=== PATIENT | male | born 1975 | race Caucasian/White ===

== ENCOUNTER 2024-11-30 10:28 | Inpatient (IN) | payer MEDICAID ==
[~2024-11-30] VITALS: Ht 172.7 cm; Wt 58.2 kg
[2024-11-30] MEDS ORDERED: PANT40TA54 PO (10:49)
[2024-11-30] MEDS ORDERED: PRED10TA (10:49)
[2024-11-30] MEDS ORDERED: FERR236T3 PO (10:50)
[2024-11-30] MEDS ORDERED: potassium Cl 20 mEq SR tablet PO PRN ×2 (12:30)
[2024-11-30] MEDS ORDERED: magnesium sulf-water 2g/50mL 50 ML IV PRN (12:30)
[2024-11-30] MEDS ORDERED: potassium Cl 40MEQ/1/2NS 520ml 520 ML IV PRN (12:30)
[2024-11-30] MEDS ORDERED: mag hydrox/Alum hydrox/simeth 30ml oral suspension PO PRN (12:30)
[2024-11-30] MEDS ORDERED: magnesium sulf-water 4G/100mL 100 ML IV PRN (12:30)
--- NOTE | 2024-11-30 12:43 | Physician Documentation ---
History of Present Illness ~ Chief Complaint: Rectal Bleeding Stated Complaint: ABD PAIN Time Seen by MD: 10:31 Mode of Arrival: EMS HPI 49 year old male with recent hospitalization at [place] in [place], [place] with diagnosis of ulcerative colitis. On steroid taper, presented to [facility] with worsening symptoms of abdominal pain and lower GI bleeding. IVF and antibiotics there for concern for possible sepsis given soft blood pressures, consult with GI fiscal economist in [place] and admission was decided, patient sent to us as transfer for higher level of GI care. On arrival, patient was stable and comfortable. Medication Reconciliation Allergies: Coded Allergies: infliximab (Verified Allergy, Severe, 11/30/24) hives and blisters Uncoded Allergies: NSAIDS (Allergy, Mild, 11/30/24) "due to stomach issues" MESALINE (Allergy, Unknown, 11/30/24) Scheduled Ferrous Gluconate (Iron), 1 TAB PO DAILY, (Reported) Pantoprazole Sodium (Pantoprazole Sodium), 1 TAB PO DAILY, (Reported) Miscellaneous Medications Prednisone (Prednisone), (Reported) Review of Systems All Other Systems at this time: Reviewed and Negative Physical Exam Vital Signs: RN Vital Signs have been reviewed: Yes, Temperature: 97.8, Source: Oral, Heart Rate: 73, Respiratory Rate: 16, BP: 91/62, Pulse Oximetry: 99, Weight: 58.180 Oxygen Flow Rate: 0 Physical Exam HEENT: PERRL, moist oral mucosa, EOMI Pulmonary: No respiratory distress Cardiac: RRR, no murmur, rub or gallop GI: nondistended, soft, nontender, no guarding, no rebound MSK: no deformity Skin: w/d/i, no rash Neuro: alert, nonfocal Psych: normal affect Progress Results/Orders Results/Orders Orders - SKY HECTOR MD Page Hospitalist (11/30/24 10:37) Vital Signs 11/30/24 11/30/24 10:36 12:16 Temp 97.8 Pulse 70 73 Resp 16 16 B/P (MAP) 108/65 91/62 (72) Pulse Ox 99 99 O2 Flow Rate 0 0 Laboratory Tests Test 11/30/24 10:43 White Blood Count 10.1 Red Blood Count 3.32 L Hemoglobin 9.3 L Hematocrit 28.8 L Mean Corpuscular Volume 86.8 Mean Corpuscular Hemoglobin 28.0 Mean Corpuscular Hemoglobin Concent 32.2 L Red Cell Distribution Width 19.6 H Platelet Count 483 H Mean Platelet Volume 7.1 L Neutrophils (%) (Auto) 87.9 H Lymphocytes (%) (Auto) 5.0 L Monocytes (%) (Auto) 6.9 Eosinophils (%) (Auto) 0 Basophils (%) (Auto) 0.2 Neutrophils # (Auto) 8.9 H Lymphocytes # (Auto) 0.5 L Monocytes # (Auto) 0.7 Eosinophils # (Auto) 0.0 Basophils # (Auto) 0.0 CBC Comment Sodium Level 140 Potassium Level 3.8 Chloride Level 105 Carbon Dioxide Level 25.5 Anion Gap 10 Blood Urea Nitrogen 8 Creatinine 0.85 Estimated GFR/1.73 m2 > 90 BUN/Creatinine Ratio 9.4 L Glucose Level 181 H Lactic Acid Level 3.8 H Calcium Level 8.3 L Total Bilirubin 0.3 Aspartate Amino Transf (AST/SGOT) 25 Alanine Aminotransferase (ALT/SGPT) 41 Alkaline Phosphatase 73 Total Protein 5.9 L Albumin 1.7 L Globulin 4.2 Albumin/Globulin Ratio 0.4 L Chemistry Comments Medical Decision Making Findings 49 year old male with apparent colitis and flareup of UC, sent from [facility] transferred to hospitalist for further GI workup. Additional Comments Ddx = IBD flareup, AVM, bleeding hemorrhoids, diverticulitis, intraabdominal abscess Departure Disposition: 09 ADMITTED INPATIENT Admitted to Inpatient Unit: to hospitalist Admission Level of Care: Med/Surg Impression: Primary Impression: Ulcerative colitis Condition: Stable Referrals: NO PRIMARY CARE PROVIDER (PCP) Education Educated: Patient Educated regarding: diagnosis, treatment, prognosis, need for follow up Signature Scribe Signature: . Attestation: . SKY HECTOR MD Nov 30, 2024 12:43
[2024-11-30 12:53] LABS: BASOPHILS % (AUTO) 0.2 % (0-1); EOSINOPHILS % (AUTO) 0 % (0-6); HEMATOCRIT 28.8 % (42.0-52.0); HEMOGLOBIN 9.3 g/dl (14.0-17.9); LYMPHOCYTES # (AUTO) 0.5 X10'3 (1.1-4.8); MEAN CORPUSCULAR HGB CONC 32.2 g/dL (33.0-36.5); MEAN CORPUSCULAR VOLUME 86.8 FL (78-98); MEAN PLATELET VOLUME 7.1 FL (7.4-10.4); MONOCYTES # (AUTO) 0.7 X10'3 (0-0.9); MONOCYTES % (AUTO) 6.9 % (2-12); NEUTROPHILS # (AUTO) 8.9 X10'3 (1.8-7.7); NEUTROPHILS % (AUTO) 87.9 % (42-75); PLATELET COUNT 483 X10'3 (140-440); RED BLOOD COUNT 3.32 X10'6 (4.70-6.10); RED CELL DISTRIBUTION WIDTH 19.6 % (11.5-14.5); WHITE BLOOD COUNT 10.1 X10'3 (4.5-11.0)
[2024-11-30 12:59] LABS: ALANINE AMINOTRANSFERASE 41 U/L (12-78); ALBUMIN 1.7 G/DL (3.4-5.0); ALBUMIN/GLOBULIN RATIO 0.4 (1.1-1.5); ALKALINE PHOSPHATASE 73 IU/L (46-116); ANION GAP 10 (8-16); ASPARTATE AMINO TRANSFERASE 25 U/L (10-37); BILIRUBIN,TOTAL 0.3 MG/DL (0.1-1.0); BLOOD UREA NITROGEN 8 MG/DL (7-18); BUN/CREATININE RATIO 9.4 (10.0-20.0); CALCIUM 8.3 MG/DL (8.5-10.1); CHLORIDE 105 MMOL/L (99-107); CREATININE 0.85 MG/DL (0.60-1.10); GLUCOSE 181 MG/DL (70-104); POTASSIUM 3.8 MMOL/L (3.5-5.1); SODIUM 140 MMOL/L (135-145); TOTAL CARBON DIOXIDE 25.5 MMOL/L (24-32); TOTAL PROTEIN 5.9 G/DL (6.4-8.2); eCRCL 86 ML/MIN; eGFR > 90 ML/MIN
[2024-11-30] MEDS: methylPREDNISolone sod succ 125mg/2ml vial IV SCH (13:24)
[2024-11-30] MEDS: normal saline 1000ml 1,000 ML IV SCH (13:24)
[2024-11-30] MEDS: VANCOMYCIN 500MG/WATER FOR INJ (PEG) PREMIX 100 ML IV STA (13:24)
[2024-11-30 14:15] VITALS: BP 96/63; PULSE 68; RESP 15; TEMP 98.6; O2SAT 99
[2024-11-30 15:02] VITALS: RESP 15; O2SAT 99
[2024-11-30] MEDS: piperacillin/tazo 4.5gm/100ml 100 ML IV SCH (16:38)
[2024-11-30 18:00] VITALS: BP 94/61; PULSE 65; RESP 21; TEMP 97; O2SAT 97
--- NOTE | 2024-11-30 19:13 | HISTORY AND PHYSICAL ---
History & Physical Providers to ~ History of Present Illness Reason for Admit\\Complaint: Ulcerative colitis flare-up History of Present Illness This is a 49-year-old male who is transferred from [facility] ED for a ulcerative colitis flare-up the patient has been hospitalized an and low and discharged on 11/22 with a tapering dose of prednisone 60 mg x 1 day then 40 mg x 3 days and then 20 mg x 3 days and then 10 mg when the patient decrease his prednisone to 20 mg he has started having bloody bowel movements and went to the ED for which the patient has has mild anemia hemoglobin 9.3 which was 9.8 at [facility]. The ER physician Dr. Jones spoke to on-call hourly sign language interpreter Annabelle Mcdaniel recommended upon discharge to stay on 60 mg of prednisone daily the patient has a follow up appointment with Gastroenterology on the . The patient also had a positive blood culture Gram-positive cocci was started on Zosyn and vancomycin which will be continued. Patient informs me that he has had three episodes of ulcerative colitis the initial one was in 2013 and lasted for a couple of weeks and spontaneously resolved he has a 2nd flare-up in 2019 the patient has has had symptoms on this flare-up since the beginning of the year. The patient does become sweaty when he develops a flare-up and he is sweating in the afternoon and in the evening. The patient is on IV Solu-Medrol currently Allergies: Coded Allergies: infliximab (Verified Allergy, Severe, 11/30/24) hives and blisters Uncoded Allergies: NSAIDS (Allergy, Mild, 11/30/24) "due to stomach issues" MESALINE (Allergy, Unknown, 11/30/24) Home Medications Home Medications Active Reported Iron (Ferrous Gluconate) 236 Mg (27 Mg Iron) Tablet 1 Tab PO DAILY 30 Days Pantoprazole Sodium 40 Mg Tablet. 1 Tab PO DAILY Prednisone (Prednisone) 10 Mg Tablet Past Medical History Past Medical History Ulcerative colitis, remote history of DVT, kidney stones, compression fracture the spine Past Surgical History Surgical History Comment Vertebroplasty For hernia repairs including umbilical hernia repair and an inguinal hernia repair Cystoscopy with laser ablation of kidney stone Family History Family History: FH: cataracts FATHER MOTHER FH: hypertension FATHER MOTHER FH: prostate cancer FATHER FH: renal cell carcinoma Maternal grandfather Kidney stones FATHER Past Social History Social History Comment Does not smoke cigarettes drink alcohol or use illicit drugs. Full code status Exam Vitals: Vital Signs Date Time Temp Pulse Resp B/P (MAP) Pulse Ox O2 Delivery O2 Flow Rate FiO2 11/30/24 15:02 15 99 Room Air 0.0 11/30/24 14:20 69 11/30/24 14:15 98.6 96/63 (74) General: Gen. No acute distress alert and oriented 4 Lungs clear to ascultation bilaterally, no wheezes rales or rhonchi appreciated Heart normal sinus rhythm no murmurs rubs or clicks noted Abdomen soft moderate left lower quadrant tenderness bowel sounds are normoactive Lower extremities no clubbing cyanosis, nor edema appreciated bilaterally Diagnostic Data Last Recorded Lab Results: 11/30/24 1043 11/30/24 1043 Counseling Services Smoking & Tobacco Cessation: N/A Advance Care Planning Advanced Care plannin - 30 Minutes Problems: (1) Ulcerative colitis Additional Plan # ulcerative colitis with a acute flare-up IV Solu-Medrol 60 mg t.i.d. The ER physician Dr. Jones spoke to on-call hourly sign language interpreter Annabelle Mcdaniel recommended upon discharge to stay on 60 mg of prednisone daily the patient has a follow up appointment with Gastroenterology on the . # remote history of DVT of the left upper extremity Resolved # sepsis Repeat blood cultures has been ordered Blood culture obtained from [facility] demonstrated Gram-positive cocci On IV Zosyn and IV vancomycin # normocytic anemia Monitor daily CBC Transfuse if hemoglobin is below seven # DVT prophylaxis SCDs chemical prophylaxis is contraindicated due to the patient's active ulcerative colitis flare-up. I spent a total of 17 minutes on reviewing various resuscitative measures/ ACP with the patient at the time of admission. The patient has decided on full code status Date of Service: Nov 30, 2024 Billing Provider: ZULEYMA ARELLANO DO Common Visit Codes: [id number] INP/OBS CARE (HIGH) Secondary Visit Codes: [id number] CARE PLAN 30 MINUTES ZULEYMA ARELLANO DO Nov 30, 2024 19:13
[2024-11-30 20:00] VITALS: RESP 16; O2SAT 97
[2024-11-30] MEDS: K and/or MAG REPLACEMENT MC SCH (20:00)
[2024-11-30 20:37] LABS: HEMATOCRIT 26.9 % (42.0-52.0); HEMOGLOBIN 8.8 g/dl (14.0-17.9); MEAN CORPUSCULAR HEMOGLOBIN 28.1 PG (27.0-31.0); MEAN CORPUSCULAR HGB CONC 32.5 g/dL (33.0-36.5); MEAN CORPUSCULAR VOLUME 86.2 FL (78-98); MEAN PLATELET VOLUME 6.4 FL (7.4-10.4); PLATELET COUNT 461 X10'3 (140-440); RED BLOOD COUNT 3.12 X10'6 (4.70-6.10); RED CELL DISTRIBUTION WIDTH 19.3 % (11.5-14.5); WHITE BLOOD COUNT 7.1 X10'3 (4.5-11.0)
[2024-11-30 22:00] VITALS: BP 96/64; PULSE 63; RESP 16; TEMP 97.1; O2SAT 99
[2024-11-30] MEDS: ondansetron/PF 4mg/2ml inj IV PRN (23:02)
[2024-11-30] MEDS: morphine 2 MG/ML inj. syringe IV ONE (23:25)
[2024-12-01] MEDS: vancomycin/NS 1 GM ADD-VANTAGE 250 ML IV SCH (00:58)
[2024-12-01 05:00] LABS: BASOPHILS % (AUTO) 0 % (0-1); EOSINOPHILS % (AUTO) 0 % (0-6); HEMATOCRIT 25.3 % (42.0-52.0); HEMOGLOBIN 8.3 g/dl (14.0-17.9); LYMPHOCYTES # (AUTO) 0.4 X10'3 (1.1-4.8); LYMPHOCYTES % (AUTO) 5.6 % (21-51); MEAN CORPUSCULAR HEMOGLOBIN 28.2 PG (27.0-31.0); MEAN CORPUSCULAR HGB CONC 32.9 g/dL (33.0-36.5); MEAN CORPUSCULAR VOLUME 85.8 FL (78-98); MEAN PLATELET VOLUME 6.6 FL (7.4-10.4); MONOCYTES # (AUTO) 0.5 X10'3 (0-0.9); NEUTROPHILS % (AUTO) 88.4 % (42-75); PLATELET COUNT 424 X10'3 (140-440); RED BLOOD COUNT 2.95 X10'6 (4.70-6.10); RED CELL DISTRIBUTION WIDTH 19.2 % (11.5-14.5); WHITE BLOOD COUNT 7.9 X10'3 (4.5-11.0)
[2024-12-01 05:22] LABS: ALANINE AMINOTRANSFERASE 32 U/L (12-78); ALBUMIN 1.7 G/DL (3.4-5.0); ALBUMIN/GLOBULIN RATIO 0.4 (1.1-1.5); ALKALINE PHOSPHATASE 63 IU/L (46-116); ANION GAP 8 (8-16); ASPARTATE AMINO TRANSFERASE 5 U/L (10-37); BILIRUBIN,TOTAL 0.3 MG/DL (0.1-1.0); BLOOD UREA NITROGEN 9 MG/DL (7-18); BUN/CREATININE RATIO 13.4 (10.0-20.0); CALCIUM 8.2 MG/DL (8.5-10.1); CHLORIDE 106 MMOL/L (99-107); CREATININE 0.67 MG/DL (0.60-1.10); GLUCOSE 137 MG/DL (70-104); MAGNESIUM 2.2 MG/DL (1.5-2.4); SODIUM 140 MMOL/L (135-145); TOTAL CARBON DIOXIDE 26.5 MMOL/L (24-32); TOTAL PROTEIN 5.8 G/DL (6.4-8.2); eCRCL 109 ML/MIN; eGFR > 90 ML/MIN
[2024-12-01 06:00] VITALS: BP 94/63; PULSE 59; RESP 16; TEMP 97.2; O2SAT 97
[2024-12-01] MEDS: HYDROmorphone 1 mg/ml syringe IV PRN (07:53)
[2024-12-01] MEDS: LIDOCAINE 5% OINTMENT 35GM TP PRN (07:53)
[2024-12-01 10:00] VITALS: BP 90/60; RESP 65; TEMP 97.3; O2SAT 98
[2024-12-01 18:00] VITALS: BP 95/58; PULSE 60; RESP 16; O2SAT 95
--- NOTE | 2024-12-01 18:35 | PROGRESS NOTE ---
Daily Progress Note Providers to CC ~ Antibiotic Timeout Antibiotic Ordered?: Yes Subjective The patient continues to have bloody diarrhea- he is requesting a plan diet, his blood cultures are negative thus far Objective Vital Signs Date Time Temp Pulse Resp B/P (MAP) Pulse Ox O2 Delivery O2 Flow Rate FiO2 12/01/24 15:41 18 12/01/24 10:56 Room Air 12/01/24 10:00 97.3 90/60 (70) 98 12/01/24 06:00 59 11/30/24 20:00 0.0 Result Diagram: 12/01/2443612/01/24436 Gen. No acute distress alert and oriented 4 Lungs clear to ascultation bilaterally, no wheezes rales or rhonchi appreciated Heart normal sinus rhythm no murmurs rubs or clicks noted Abdomen soft moderate left lower quadrant tenderness bowel sounds are normoactive Lower extremities no clubbing cyanosis, nor edema appreciated bilaterally Problem\Assessment\Plan Problems/Diagnosis: (1) Ulcerative colitis Additional Plan # ulcerative colitis with a acute flare-up IV Solu-Medrol 60 mg t.i.d. The ER physician Dr. Jones spoke to on-call parking lot chauffeur Dr. Kyle recommended upon discharge to stay on 60 mg of prednisone daily the patient has a follow up appointment with Gastroenterology on the . # remote history of DVT of the left upper extremity Resolved # sepsis Repeat blood cultures has been ordered Blood culture obtained from [facility] demonstrated Gram-positive cocci On IV Zosyn and IV vancomycin # normocytic anemia Monitor daily CBC Transfuse if hemoglobin is below seven 12/01 hemoglobin downtrended today # DVT prophylaxis SCDs chemical prophylaxis is contraindicated due to the patient's active ulcerative colitis flare-up. Date of Service: Dec 01, 2024 Billing Provider: ZULEYMA ARELLANO DO Common Visit Codes: [id number] INP/OBS CARE(HIGH) ZULEYMA ARELLANO DO Dec 01, 2024 18:35
[2024-12-01 22:00] VITALS: BP 119/73; PULSE 109; RESP 16; TEMP 98.6; O2SAT 96
[2024-12-02] MEDS: VANCOMYCIN LEVEL IV ONE (00:30)
[2024-12-02 01:25] LABS: ALANINE AMINOTRANSFERASE 32 U/L (12-78); ALBUMIN 1.8 G/DL (3.4-5.0); ALBUMIN/GLOBULIN RATIO 0.5 (1.1-1.5); ALKALINE PHOSPHATASE 62 IU/L (46-116); ANION GAP 5 (8-16); ASPARTATE AMINO TRANSFERASE 14 U/L (10-37); BILIRUBIN,TOTAL 0.2 MG/DL (0.1-1.0); BLOOD UREA NITROGEN 16 MG/DL (7-18); BUN/CREATININE RATIO 18.6 (10.0-20.0); CALCIUM 7.7 MG/DL (8.5-10.1); CHLORIDE 102 MMOL/L (99-107); CREATININE 0.86 MG/DL (0.60-1.10); GLUCOSE 161 MG/DL (70-104); MAGNESIUM 2.3 MG/DL (1.5-2.4); POTASSIUM 3.8 MMOL/L (3.5-5.1); SODIUM 135 MMOL/L (135-145); TOTAL CARBON DIOXIDE 28.3 MMOL/L (24-32); TOTAL PROTEIN 5.8 G/DL (6.4-8.2); VANCOMYCIN,TROUGH 8.9 ug/mL (10.0-20.0); eCRCL 85 ML/MIN; eGFR > 90 ML/MIN
[2024-12-02 05:04] LABS: BASOPHILS % (AUTO) 0.1 % (0-1); EOSINOPHILS % (AUTO) 0 % (0-6); HEMATOCRIT 25.8 % (42.0-52.0); HEMOGLOBIN 8.5 g/dl (14.0-17.9); LYMPHOCYTES # (AUTO) 0.6 X10'3 (1.1-4.8); MEAN CORPUSCULAR HEMOGLOBIN 28.2 PG (27.0-31.0); MEAN CORPUSCULAR HGB CONC 32.8 g/dL (33.0-36.5); MEAN PLATELET VOLUME 6.5 FL (7.4-10.4); MONOCYTES # (AUTO) 0.8 X10'3 (0-0.9); MONOCYTES % (AUTO) 10.5 % (2-12); NEUTROPHILS # (AUTO) 6.2 X10'3 (1.8-7.7); NEUTROPHILS % (AUTO) 81.4 % (42-75); PLATELET COUNT 438 X10'3 (140-440); WHITE BLOOD COUNT 7.6 X10'3 (4.5-11.0)
[2024-12-02 06:00] VITALS: BP 87/57; PULSE 54; RESP 16; TEMP 97.6; O2SAT 94
[2024-12-02 07:15] VITALS: BP 103/87; PULSE 57
--- NOTE | 2024-12-02 08:05 | PROGRESS NOTE ---
Daily Progress Note Providers to CC ~ Antibiotic Timeout Antibiotic Ordered?: Yes Subjective Chief complaint my bloody diarrhea is not any better Review of systems is negative for all Objective Vital Signs Date Time Temp Pulse Resp B/P (MAP) Pulse Ox O2 Delivery O2 Flow Rate FiO2 12/02/24 07:15 57 103/87 (92) 12/02/24 00:10 16 12/01/24 22:00 98.6 96 Room Air 11/30/24 20:00 0.0 Result Diagram: 12/02/24 0455 12/02/24 0055 Patient is alert and oriented x4 sitting up in bed talking in full sentences in no acute distress CVS first and second heart sounds are regular rate rhythm no murmurs gallops or rubs Respiratory system is clear to auscultate bilaterally no rales rhonchi crackles or wheezing Abdomen is soft scaphoid benign bowel sounds are positive nontender nondistended Extremities no clubbing cyanosis or edema Problem\Assessment\Plan Problems/Diagnosis: (1) Ulcerative colitis Additional Plan # ulcerative colitis with a acute flare-up IV Solu-Medrol 60 mg t.i.d. The ER physician Dr. Jones spoke to on-call roll hauler Dr. Kyle recommended upon discharge to stay on 60 mg of prednisone daily the patient has a follow up appointment with Gastroenterology on the . # remote history of DVT of the left upper extremity Resolved # sepsis Repeat blood cultures has been ordered Blood culture obtained from [facility] demonstrated Gram-positive cocci On IV Zosyn and IV vancomycin # normocytic anemia Monitor daily CBC Transfuse if hemoglobin is below seven 12/01 hemoglobin downtrended today # DVT prophylaxis SCDs chemical prophylaxis is contraindicated due to the patient's active ulcerative colitis flare-up. Date of Service: Dec 02, 2024 Billing Provider: GABI STOUT MD Common Visit Codes: [id number] INP/OBS CARE(HIGH) GABI STOUT MD Dec 02, 2024 08:05
[2024-12-02 08:29] LABS: C DIFF ANTIGEN NEGATIVE (NEGATIVE); C DIFF SPECIMEN=DIARRHEA? ACCEPTABLE; C DIFFICILE TOXINS A&B NEGATIVE (Neg)
[2024-12-02 10:00] VITALS: BP 96/63; PULSE 67; RESP 16; TEMP 97.9; O2SAT 96
[2024-12-02] MEDS: VANCOMYCIN/WATER FOR INJ (PEG) 1.5GM/300 ML IVPB IV SCH (13:06)
[2024-12-02 18:00] VITALS: BP 112/75; PULSE 68; RESP 16; TEMP 98.1; O2SAT 98
[2024-12-02 20:00] VITALS: RESP 16; O2SAT 98
[2024-12-02 21:45] VITALS: BP 90/59; PULSE 60; RESP 16; TEMP 98.3; O2SAT 97
[2024-12-03] VITALS (10 sets, daily range): BP systolic 94–102; BP diastolic 53–67; PULSE 55–76; RESP 14–22; TEMP 97.1–98.5; O2SAT 95–97
[2024-12-03 05:42] LABS: ALANINE AMINOTRANSFERASE 28 U/L (12-78); ALBUMIN 1.7 G/DL (3.4-5.0); ALBUMIN/GLOBULIN RATIO 0.4 (1.1-1.5); ALKALINE PHOSPHATASE 52 IU/L (46-116); ANION GAP 5 (8-16); ASPARTATE AMINO TRANSFERASE 13 U/L (10-37); BASOPHILS % (AUTO) 0.1 % (0-1); BILIRUBIN,TOTAL 0.1 MG/DL (0.1-1.0); BLOOD UREA NITROGEN 12 MG/DL (7-18); BUN/CREATININE RATIO 16.7 (10.0-20.0); CALCIUM 7.9 MG/DL (8.5-10.1); CHLORIDE 105 MMOL/L (99-107); CREATININE 0.72 MG/DL (0.60-1.10); EOSINOPHILS % (AUTO) 0 % (0-6); GLUCOSE 148 MG/DL (70-104); HEMATOCRIT 23.4 % (42.0-52.0); HEMOGLOBIN 7.6 g/dl (14.0-17.9); LYMPHOCYTES # (AUTO) 0.6 X10'3 (1.1-4.8); LYMPHOCYTES % (AUTO) 8.5 % (21-51); MAGNESIUM 2.3 MG/DL (1.5-2.4); MEAN CORPUSCULAR HEMOGLOBIN 27.9 PG (27.0-31.0); MEAN CORPUSCULAR HGB CONC 32.5 g/dL (33.0-36.5); MEAN CORPUSCULAR VOLUME 85.9 FL (78-98); MEAN PLATELET VOLUME 6.8 FL (7.4-10.4); MONOCYTES # (AUTO) 0.9 X10'3 (0-0.9); MONOCYTES % (AUTO) 12.9 % (2-12); NEUTROPHILS # (AUTO) 5.7 X10'3 (1.8-7.7); NEUTROPHILS % (AUTO) 78.5 % (42-75); PLATELET COUNT 402 X10'3 (140-440); POTASSIUM 4.1 MMOL/L (3.5-5.1); RED BLOOD COUNT 2.72 X10'6 (4.70-6.10); RED CELL DISTRIBUTION WIDTH 18.9 % (11.5-14.5); SODIUM 137 MMOL/L (135-145); TOTAL CARBON DIOXIDE 26.9 MMOL/L (24-32); TOTAL PROTEIN 5.5 G/DL (6.4-8.2); WHITE BLOOD COUNT 7.3 X10'3 (4.5-11.0); eCRCL 101 ML/MIN; eGFR > 90 ML/MIN
[2024-12-03 06:23] LABS: ANISOCYTOSIS 2+; PLATELET ESTIMATE NORMAL; ROULEAUX 1+
[2024-12-03 06:24] LABS: TEAR DROP CELLS FEW
--- NOTE | 2024-12-03 08:33 | PROGRESS NOTE ---
Daily Progress Note Providers to CC ~ Antibiotic Timeout Antibiotic Ordered?: Yes Objective Vital Signs Date Time Temp Pulse Resp B/P (MAP) Pulse Ox O2 Delivery O2 Flow Rate FiO2 12/03/24 06:00 97.1 55 16 100/60 (73) 97 Room Air 12/02/24 08:00 0.0 Result Diagram: 12/03/24 0501 12/03/24 0501 Problem\Assessment\Plan Problems/Diagnosis: (1) Ulcerative colitis Additional Plan # ulcerative colitis with a acute flare-up IV Solu-Medrol 60 mg t.i.d. I spoke to Dr. Kyle later in the evening around 630 and he said there was really nothing else to do except to Solu-Medrol and maybe continue it for a couple of more days and decide. recommended upon discharge to stay on 60 mg of prednisone daily the patient has a follow up appointment with Gastroenterology on the . # remote history of DVT of the left upper extremity Resolved # sepsis Repeat blood cultures has been ordered Blood culture obtained from [facility] demonstrated Gram-positive cocci though I requested it the I and D from [facility] is still not available On IV Zosyn and IV vancomycin these need to be Decelerated # normocytic anemia Monitor daily CBC Because of down trending of the H&H I have transfused 1 unit of packed RBC # continue with DVT prophylaxis with the SCDs Date of Service: Dec 03, 2024 Billing Provider: GABI STOUT MD Common Visit Codes: [id number] INP/OBS CARE(HIGH) GABI STOUT MD Dec 03, 2024 08:33
[2024-12-03] MEDS: iron sucrose complex injection 300 MG in normal saline 250ml IV soln 250 ML IV SCH (10:00)
[2024-12-03] MEDS: folic acid 1mg tablet PO SCH (16:25)
[2024-12-03] MEDS: cyanocobalamin 500mcg tablet PO SCH (16:26)
[2024-12-03] MEDS ORDERED: ondansetron 4mg rapidly disintigrating tab PO PRN (17:10)
[2024-12-03] MEDS: VANCOMYCIN/WATER FOR INJ (PEG) 1.5GM/300 ML IVPB IV SCH (21:02)
[2024-12-03] MEDS: pantoprazole 40 MG vial IV SCH (21:02)
[2024-12-04 05:00] VITALS: BP 95/59; PULSE 56; RESP 14; TEMP 97.4; O2SAT 96
[2024-12-04 06:14] LABS: BASOPHILS % (AUTO) 0.1 % (0-1); EOSINOPHILS % (AUTO) 0 % (0-6); HEMATOCRIT 28.4 % (42.0-52.0); HEMOGLOBIN 9.4 g/dl (14.0-17.9); LYMPHOCYTES # (AUTO) 0.5 X10'3 (1.1-4.8); LYMPHOCYTES % (AUTO) 7.5 % (21-51); MEAN CORPUSCULAR HEMOGLOBIN 28.8 PG (27.0-31.0); MEAN CORPUSCULAR HGB CONC 33.3 g/dL (33.0-36.5); MEAN CORPUSCULAR VOLUME 86.4 FL (78-98); MEAN PLATELET VOLUME 6.5 FL (7.4-10.4); MONOCYTES # (AUTO) 0.8 X10'3 (0-0.9); MONOCYTES % (AUTO) 10.8 % (2-12); NEUTROPHILS # (AUTO) 5.8 X10'3 (1.8-7.7); NEUTROPHILS % (AUTO) 81.6 % (42-75); PLATELET COUNT 386 X10'3 (140-440); RED BLOOD COUNT 3.28 X10'6 (4.70-6.10); WHITE BLOOD COUNT 7.1 X10'3 (4.5-11.0)
[2024-12-04 06:15] LABS: ANION GAP 7 (8-16); BLOOD UREA NITROGEN 9 MG/DL (7-18); CALCIUM 8.3 MG/DL (8.5-10.1); CHLORIDE 106 MMOL/L (99-107); CREATININE 0.75 MG/DL (0.60-1.10); GLUCOSE 122 MG/DL (70-104); MAGNESIUM 2.4 MG/DL (1.5-2.4); SODIUM 141 MMOL/L (135-145); eCRCL 97 ML/MIN; eGFR > 90 ML/MIN
[2024-12-04 06:16] LABS: ALANINE AMINOTRANSFERASE 31 U/L (12-78); ALBUMIN 1.9 G/DL (3.4-5.0); ALBUMIN/GLOBULIN RATIO 0.5 (1.1-1.5); ALKALINE PHOSPHATASE 55 IU/L (46-116); ASPARTATE AMINO TRANSFERASE 12 U/L (10-37); BILIRUBIN,TOTAL 0.3 MG/DL (0.1-1.0); TOTAL PROTEIN 5.8 G/DL (6.4-8.2)
[2024-12-04 08:00] VITALS: RESP 14; O2SAT 96
[2024-12-04 09:42] VITALS: RESP 14; O2SAT 96
[2024-12-04 10:00] VITALS: BP 110/60; PULSE 69; RESP 18; TEMP 98; O2SAT 96
--- NOTE | 2024-12-04 10:32 | PROGRESS NOTE ---
Daily Progress Note Providers to CC ~ Antibiotic Timeout Antibiotic Ordered?: No Subjective Chief complaint none Still having a bloody diarrhea but little bit better than yesterday Objective Vital Signs Date Time Temp Pulse Resp B/P (MAP) Pulse Ox O2 Delivery O2 Flow Rate FiO2 12/04/24 09:42 14 96 Room Air 0.0 12/04/24 05:00 97.4 56 95/59 (71) Result Diagram: 12/04/24 0509 12/04/24 0509 Patient is alert and oriented x4 in no acute distress lying down comfortably speaking in full sentences HEENT normocephalic nontraumatic head PERRLA. EOMI. Conjunctiva are pink sclerae are anicteric CVS first and second heart sounds are regular rate rhythm there is no murmurs gallops or rubs Respiratory system is clear to auscultate bilaterally no rales rhonchi crackles or wheezing Abdomen is soft bowel sounds are positive nontender nondistended Extremities no clubbing cyanosis or edema Problem\Assessment\Plan Problems/Diagnosis: (1) Ulcerative colitis Additional Plan # ulcerative colitis with a acute flare-up IV Solu-Medrol 60 mg t.i.d. The ER physician Dr. Jones spoke to on-call sap pp consultant Dr. Kyle recommended upon discharge to stay on 60 mg of prednisone daily the patient has a follow up appointment with Gastroenterology on the . # remote history of DVT of the left upper extremity Resolved # sepsis Finally got the results from [facility] it seems to be a contaminant we will discontinue all antibiotics at this time. repeat blood cultures are negative x2. # normocytic anemia Monitor daily CBC Status post 1 unit of packed RBCs hemoglobin increased from 7-9 # DVT prophylaxis SCDs chemical prophylaxis is contraindicated due to the patient's active ulcerative colitis flare-up. Date of Service: Dec 04, 2024 Billing Provider: GABI STOUT MD Common Visit Codes: [id number] INP/OBS CARE(HIGH) GABI STOUT MD Dec 04, 2024 10:32
[2024-12-04] MEDS: HYDROmorphone inj. 0.5 MG/0.5 ML DISP.SYRIN IV PRN (11:22)
[2024-12-04] MEDS: acetaminophen 325mg tablet PO PRN (13:48)
[2024-12-04 18:00] VITALS: BP 99/64; PULSE 66; RESP 18; TEMP 97.7; O2SAT 95
[2024-12-04 22:00] VITALS: BP 96/59; PULSE 73; RESP 16; TEMP 97.3; O2SAT 98
[2024-12-05 06:00] VITALS: BP 116/77; PULSE 59; RESP 19; TEMP 97.4; O2SAT 97
[2024-12-05 06:28] LABS: BASOPHILS % (AUTO) 0.1 % (0-1); EOSINOPHILS % (AUTO) 0 % (0-6); HEMATOCRIT 28.7 % (42.0-52.0); HEMOGLOBIN 9.3 g/dl (14.0-17.9); LYMPHOCYTES # (AUTO) 0.7 X10'3 (1.1-4.8); MEAN CORPUSCULAR HEMOGLOBIN 28.2 PG (27.0-31.0); MEAN CORPUSCULAR HGB CONC 32.5 g/dL (33.0-36.5); MEAN CORPUSCULAR VOLUME 86.8 FL (78-98); MEAN PLATELET VOLUME 6.6 FL (7.4-10.4); MONOCYTES # (AUTO) 0.7 X10'3 (0-0.9); MONOCYTES % (AUTO) 7.8 % (2-12); NEUTROPHILS # (AUTO) 7.6 X10'3 (1.8-7.7); NEUTROPHILS % (AUTO) 84.1 % (42-75); PLATELET COUNT 394 X10'3 (140-440); RED CELL DISTRIBUTION WIDTH 18.9 % (11.5-14.5); WHITE BLOOD COUNT 9.1 X10'3 (4.5-11.0)
[2024-12-05 07:07] LABS: ALANINE AMINOTRANSFERASE 29 U/L (12-78); ALBUMIN 1.9 G/DL (3.4-5.0); ALBUMIN/GLOBULIN RATIO 0.5 (1.1-1.5); ALKALINE PHOSPHATASE 55 IU/L (46-116); ANION GAP 6 (8-16); ASPARTATE AMINO TRANSFERASE 16 U/L (10-37); BILIRUBIN,TOTAL 0.1 MG/DL (0.1-1.0); BLOOD UREA NITROGEN 12 MG/DL (7-18); BUN/CREATININE RATIO 15.2 (10.0-20.0); CALCIUM 8.4 MG/DL (8.5-10.1); CHLORIDE 106 MMOL/L (99-107); CREATININE 0.79 MG/DL (0.60-1.10); GLUCOSE 125 MG/DL (70-104); MAGNESIUM 2.4 MG/DL (1.5-2.4); POTASSIUM 3.7 MMOL/L (3.5-5.1); SODIUM 139 MMOL/L (135-145); TOTAL CARBON DIOXIDE 27.5 MMOL/L (24-32); TOTAL PROTEIN 5.7 G/DL (6.4-8.2); eCRCL 92 ML/MIN; eGFR > 90 ML/MIN
[2024-12-05] MEDS: VANCOMYCIN LEVEL IV ONE (07:35)
[2024-12-05 07:37] LABS: PLATELET ESTIMATE NORMAL; TOTAL CELLS COUNTED 100
[2024-12-05 07:40] LABS: ANISOCYTOSIS 2+; BURR CELLS FEW; POLYCHROMASIA 2+
[2024-12-05 08:00] VITALS: RESP 18; O2SAT 94
--- NOTE | 2024-12-05 09:00 | PROGRESS NOTE ---
Daily Progress Note Providers to CC ~ Antibiotic Timeout Antibiotic Ordered?: No Subjective Chief complaint four large bowel movements all four with right red blood per rectum Review of systems negative for all 10 systems reviewed Objective Vital Signs Date Time Temp Pulse Resp B/P (MAP) Pulse Ox O2 Delivery O2 Flow Rate FiO2 12/05/24 06:00 97.4 59 19 116/77 (90) 97 Room Air 12/04/24 20:00 0.0 Result Diagram: 12/05/24 0536 12/05/24 0536 Patient is alert and oriented x4 sitting up in bed talking in full sentences in no acute distress CVS first and second heart sounds are regular rate rhythm no murmurs gallops or rubs Respiratory system is clear to auscultate bilaterally no rales rhonchi crackles or wheezing Abdomen is soft scaphoid benign bowel sounds are positive nontender nondistended Extremities no clubbing cyanosis or edema Problem\Assessment\Plan Problems/Diagnosis: (1) Ulcerative colitis Additional Plan # ulcerative colitis with a acute flare-up IV Solu-Medrol 60 mg t.i.d. I spoke to otolaryngology rep on-call Dr. Kyle states that we should continue the IV Solu-Medrol for a couple of more days and see how he is improving # pain and we will switch his IV Dilaudid to p.o. he seems to be becoming dependent on it # remote history of DVT of the left upper extremity Resolved # sepsis Finally got the results from [facility] it seems to be a contaminant we will discontinue all antibiotics at this time. repeat blood cultures are negative x2. Cultures are all negative seems to have been a contaminant I have discontinued the antibiotics # normocytic anemia Monitor daily CBC Status post 1 unit of packed RBCs hemoglobin increased from 7-9 # DVT prophylaxis SCDs chemical prophylaxis is contraindicated due to the patient's active ulcerative colitis flare-up. Date of Service: Dec 05, 2024 Billing Provider: GABI STOUT MD Common Visit Codes: [id number] INP/OBS CARE(HIGH) GABI STOUT MD Dec 05, 2024 09:00
[2024-12-05 10:00] VITALS: BP 105/68; PULSE 62; RESP 18; TEMP 97.8; O2SAT 94
[2024-12-05 18:00] VITALS: BP 92/57; PULSE 67; RESP 15; TEMP 98.6; O2SAT 92
[2024-12-05] MEDS ORDERED: HYDROmorphone inj. 0.5 MG/0.5 ML DISP.SYRIN IM ONE (19:00)
[2024-12-05] MEDS: HYDROmorphone inj. 0.5 MG/0.5 ML DISP.SYRIN IV ONE (19:39)
[2024-12-05] MEDS: normal saline 1000ml 1,000 ML IV SCH (19:39)
[2024-12-05 22:00] VITALS: BP 103/60; PULSE 55; RESP 18; TEMP 98.5; O2SAT 96
[2024-12-06 06:00] VITALS: BP 107/60; PULSE 56; RESP 16; TEMP 97.4; O2SAT 96
[2024-12-06 10:00] VITALS: BP 104/69; PULSE 58; RESP 18; TEMP 99.3; O2SAT 95
[2024-12-06] MEDS ORDERED: PRED20TA PO (11:58)
[2024-12-06] MEDS ORDERED: PANT40TA54 PO (11:59)
[2024-12-06] MEDS: acetaminophen 325mg tablet PO PRN (14:25)
== END 2024-12-06 15:32 | disposition home or self-care (01) | DRG 720 ==
LOC: ER 10:29 → ED HOLD 12:37 → ORTHO 4S 13:53
PROVIDERS: ADMIT Family Medicine; ATTEND Family Medicine
PROC: 30233N1 Transfusion of Nonautologous Red Blood Cells into Peripheral Vein, Percutaneous Approach (ICD-10-PCS; principal; 2024-12-03)
DX: A41.9 Sepsis, unspecified organism (principal); K51.911 Ulcerative colitis, unspecified with rectal bleeding; D64.9 Anemia, unspecified; Z80.42 Family history of malignant neoplasm of prostate; Z80.51 Family history of malignant neoplasm of kidney; Z82.49 Family history of ischemic heart disease and other diseases of the circulatory system; Z86.718 Personal history of other venous thrombosis and embolism; Z87.442 Personal history of urinary calculi; Z88.6 Allergy status to analgesic agent; Z88.8 Allergy status to other drugs, medicaments and biological substances
CPT/HCPCS: 36415; 36430; 80053; 80202; 83605; 83735; 85007; 85008; 85025; 85027; 86885; 86900; 86901; 86920; 87040; 87081; 87324; 87449; 97110; 97116; 97161; 99285; A6258; G0378; J1171; J1756; J2270; J2405; J2470; J2543; J2919; J3370; J3372; J7030; J7040; J7050; P9016

== ENCOUNTER 2025-03-02 14:24 | Outpatient (CLI) | payer MEDICAID ==
[~2025-03-02 14:24] MED LIST: FERR236T3 PO; PANT40TA54 PO; iohexol 300mg/ml 100ml inj. ONE
--- NOTE | 2025-03-02 16:00 | RADIOLOGY REPORT ---
Exam: CT CT ABDOMEN PELVIS W/ IV ORAL CONTRAST History: LOCALIZED EDEMA Comparison Study: CT ABDOMEN+PELVIS W IV CON on DOS: 11/29/24 TECHNIQUE: A digital paint mixer image was obtained. During the uneventful, intravenous administration of contrast material, multislice data acquisition was obtained through the abdomen and pelvis. The data set was subsequently reconstructed into axial images. Images reviewed on a wrist examination is an examination of axial and multiplanar reformations using a variety of window levels and settings. RADIATION DOSE: DLP 391.44 mGy.cm; CTDI vol 7.48 mGy. Findings: Lungs: Bibasilar atelectasis and/or scarring. Heart: No cardiomegaly or pericardial effusion. Liver: Subcentimeter hypodense hepatic lesions which are too small to characterize. Gallbladder: Unremarkable. Spleen: Unremarkable Pancreas: Unremarkable Adrenals: Unremarkable Kidneys: Bilateral nonobstructive nephrolithiasis. GI tract: Percutaneous gastrojejunostomy tube. Postsurgical changes of the bowel. Unremarkable : Unremarkable. Vasculature: Unremarkable Lymphadenopathy: Absent Peritoneum: No ascites. Fluid collection measuring approximately 1.8 x 3.8 x 6.2 cm adjacent to the postsurgical changes in the right upper quadrant. Musculoskeletal: Unremarkable Soft tissues: Right lower quadrant ostomy with small parastomal hernia. Small fluid containing periumbilical hernia. Unremarkable Impression: 1. No acute abdominopelvic abnormalities. 2. Bilateral nonobstructive nephrolithiasis. 3. Small parastomal hernia. 4. Right upper quadrant fluid collection measuring approximately 6.2 cm is adjacent to postsurgical changes of the bowel and may reflect a postoperative seroma.
== END 2025-03-02 23:59 | disposition home or self-care (01) ==
LOC: RAD 14:24
PROVIDERS: ATTEND Internal Medicine Infectious Disease
DX: N20.0 Calculus of kidney (principal); R10.819 Abdominal tenderness, unspecified site; J98.11 Atelectasis; K43.5 Parastomal hernia without obstruction or gangrene
CPT/HCPCS: 74177; Q9967